=== PATIENT | female | born 1995 | race Caucasian/White ===

== ENCOUNTER 2022-06-18 07:40 | Outpatient (CLI) | payer BC, SELFPAY ==
--- NOTE | 2022-06-18 08:15 | CRLHL7_ITS ---
For Patients: As a result of the Cures Act, medical imaging exams and procedure reports are released immediately into your electronic medical record. You may view this report before your referring provider. If you have questions, please contact your health care provider. INDICATION: First trimester scan, establish dates. TECHNIQUE: Real-time ny-scale imaging of the pelvis was performed. FINDINGS: Sonographic imaging demonstrates a single living intrauterine gestation. The embryo demonstrates a regular cardiac rate measuring 174 beats per minute. The embryo`s crown-rump length measurement of 1.8 cm corresponds to a gestational age of 8 weeks 2 days with a sonographic due date of 01/26/2023 . There is a normal-appearing yolk sac. Ovaries appear unremarkable IMPRESSION: Normal first trimester OB ultrasound exam. Gestational age calculated at 8 weeks 2 days with a sonographic due date of 01/26/2023 . Dictated by Erin Lora MD @ 06/18/2022 11:07:17 AM (Electronically Signed)
== END 2022-06-18 07:41 | disposition home or self-care (01) ==
LOC: US 07:41
PROVIDERS: PCP Family Medicine; Visit Provider Registered Nurse
DX: Z34.91 Encounter for supervision of normal pregnancy, unspecified, first trimester (principal); Z3A.08 8 weeks gestation of pregnancy
CPT/HCPCS: 76817

== ENCOUNTER 2022-06-18 08:58 | Outpatient (CLI) | payer BC, SELFPAY ==
[2022-06-18 12:17] LABS: Hepatitis B Surface Antigen* Negative (Negative)
[2022-06-18 12:24] LABS: HIV 1/2/P24 Combo Screen* Negative (Negative)
[2022-06-18 12:34] LABS: Hepatitis C Virus Antibody* Negative (Negative)
[2022-06-18 14:32] LABS: Chlamydia DNA Amplified* NOT DETECTED (No Detected); GC DNA Amplified* NOT DETECTED (No Detected)
[2022-06-19 13:47] LABS: Rubella Antibody IgG 12.8 IU/mL
[2022-06-19 20:38] LABS: Rapid Plasma Reagin (RPR) Non Reactive (Non Reactive)
== END 2022-06-18 08:59 | disposition home or self-care (01) ==
PROVIDERS: PCP Family Medicine; Visit Provider Registered Nurse
DX: Z34.91 Encounter for supervision of normal pregnancy, unspecified, first trimester (principal); Z3A.08 8 weeks gestation of pregnancy
CPT/HCPCS: 86592; 86703; 86762; 86787; 86803; 86850; 86900; 86901; 87086; 87340; 87491; 87591

== ENCOUNTER 2022-07-24 10:10 | Outpatient (CLI) | payer BC, SELFPAY ==
[2022-07-24 15:22] LABS: SARS PCR* Negative SARS-CoV-2 (Negative)
== END 2022-07-24 10:11 | disposition home or self-care (01) ==
LOC: KYNREF 10:10
PROVIDERS: PCP Family Medicine; Visit Provider Nurse Practitioner Family
DX: Z20.822 Contact with and (suspected) exposure to COVID-19 (principal); J06.9 Acute upper respiratory infection, unspecified
CPT/HCPCS: 87635

== ENCOUNTER 2022-09-10 12:22 | Outpatient (CLI) | payer BC, SELFPAY | END 2022-09-10 12:23 | disposition home or self-care (01) | LOC: US 12:22 | PROVIDERS: PCP Family Medicine; Visit Provider Pediatrics Neonatal-Perinatal Medicine | DX: O99.212 Obesity complicating pregnancy, second trimester (principal); Z3A.20 20 weeks gestation of pregnancy | CPT/HCPCS: 76811 ==

== ENCOUNTER 2022-11-10 07:41 | Outpatient (CLI) | payer BC, SELFPAY ==
[2022-11-10 07:59] VITALS: BP 130/67; PULSE 107
[2022-11-10 08:01] VITALS: PULSE 103; O2SAT 99
[2022-11-10 08:09] VITALS: TEMP 37.1
--- NOTE | 2022-11-10 10:55 | PC.OBNST ---
NST Note NST Note Start: 11/10/22 07:47 Freq: ONCE Status: Discharge Protocol: Document 11/10/22 10:53 ABP (Rec: 11/10/22 10:55 ABP [id number]) NST Note 1 Para (# of births) 0 EDC 01/25/23 Gestational Age In Weeks & Days 29 Weeks & 1 Days Patient Presented with Complaint(s) of Observation after an injury If Observation after an injury, describe Fall on the ice at 0615 Other Complaints Okay per both Dr. Neville Hooper and Dr. Calderon to discharge at 4 hours from fall. Reactive Yes Appropriate for Gestational Age Yes RN Robel Hernanedz, KISHORE Date 11/10/22 Reactive Yes Appropriate for Gestational Age Yes KISHORE Murillo RN Date 11/10/22 OB NST charge Yes Complete NST Note via Write Note Yes The provider's electronic signature indicates the NST is reactive/appropriate for gestational age. *Note to provider: If an addendum is required, open the patient's chart and click on the note under the Nurse/Allied Health tab.
== END 2022-11-10 10:30 | disposition home or self-care (01) ==
LOC: OB OUT 07:44 → OB 07:45
PROVIDERS: PCP Family Medicine; Visit Provider Obstetrics & Gynecology
DX: Z34.93 Encounter for supervision of normal pregnancy, unspecified, third trimester (principal); Z3A.29 29 weeks gestation of pregnancy
CPT/HCPCS: 59025; 99213

== ENCOUNTER 2022-11-11 16:49 | Outpatient (CLI) | payer BC, SELFPAY ==
[2022-11-13 23:11] LABS: Rapid Plasma Reagin (RPR) Non Reactive (Non Reactive)
== END 2022-11-11 16:50 | disposition home or self-care (01) ==
LOC: NFLDREF 16:50
PROVIDERS: PCP Family Medicine; Visit Provider Obstetrics & Gynecology
DX: Z34.90 Encounter for supervision of normal pregnancy, unspecified, unspecified trimester (principal)
CPT/HCPCS: 86592

== ENCOUNTER 2022-12-02 13:38 | Outpatient (CLI) | payer BC, SELFPAY ==
--- NOTE | 2022-12-02 14:00 | CRLHL7_ITS ---
For Patients: As a result of the Century Cures Act, medical imaging exams and procedure reports are released immediately into your electronic medical record. You may view this report before your referring provider. If you have questions, please contact your health care provider. INDICATION: 32 weeks BPP and growth TECHNIQUE: Real time ny scale imaging of the fetus was performed. COMPARISON: 09/10/2022 FINDINGS: Sonographic imaging demonstrates a single living intrauterine gestation. Fetus demonstrates a regular cardiac rate of 138 beats per minute. Fetus has a vertex position. The placenta lies anteriorly. Amniotic fluid volume appears normal and there is a single deepest pocket of 6.5 cm. DEMI 18.3 cm. The estimated weight is 2309gm which lies at the 88th %. On the prior OB ultrasound dated 09/10/2022 the estimated weight was at the 53rd percentile. BPD 92nd percentile. HC 90th percentile. AC greater than 97th percentile. FL 12th percentile. The fetus was active and demonstrated normal breathing movements. There was normal flexion and extension of the trunk and extremities. IMPRESSION: Normal biophysical profile score 8/8. Sonographic gestational age 34 weeks 0 days and sonographic due date 01/13/2023. Sonographic age is 12 days ahead of the clinical age. Estimated weight 88th percentile. AC greater than 97th percentile. Dictated by Ricky Mercer MD @ 12/02/2022 3:08:18 PM (Electronically Signed)
== END 2022-12-02 13:39 | disposition home or self-care (01) ==
LOC: US 13:39
PROVIDERS: PCP Family Medicine; Visit Provider Registered Nurse
DX: Z34.93 Encounter for supervision of normal pregnancy, unspecified, third trimester (principal); Z3A.32 32 weeks gestation of pregnancy
CPT/HCPCS: 76816; 76819

== ENCOUNTER 2022-12-08 07:05 | Outpatient (CLI) | payer BC, SELFPAY ==
--- NOTE | 2022-12-08 07:15 | CRLHL7_ITS ---
For Patients: As a result of the Cures Act, medical imaging exams and procedure reports are released immediately into your electronic medical record. You may view this report before your referring provider. If you have questions, please contact your health care provider. BIOPHYSIAL PROFILE 12/08/2022 CLINICAL HISTORY: Elevated BMI. JENIFER by LMP: 01/25/2023. GA: 33 weeks 1 day. FINDINGS: CERVIX: Not visualized. POSITIONING: Vertex. AMNIOTIC FLUID: 22.8 cm. 8.0 cm SDP. BIOPHYSICAL PROFILE 8 Total Score 2 Gross Body Movements 2 Tone 2 Respiratory Activity 2 Amniotic Fluid PLACENTA: TA, Anterior IMPRESSION: 1. Biophysical profile score 8/8. 2. Polyhydramnios. Single deepest pocket measures 8 cm. Erin Lora M.D. Diagnostic/Breast Radiologist [email or web address] Transcribed: 10:05 a.m. DW/Dictated by: Erin Lora MD @ 12/08/2022 8:34:00 AM (Electronically Signed)
== END 2022-12-08 07:06 | disposition home or self-care (01) ==
LOC: US 07:06
PROVIDERS: PCP Family Medicine; Visit Provider Obstetrics & Gynecology
DX: Z68.38 Body mass index [BMI] 38.0-38.9, adult (principal); O40.3XX0 Polyhydramnios, third trimester, not applicable or unspecified; Z3A.33 33 weeks gestation of pregnancy
CPT/HCPCS: 76819; 82565; 82570; 84156; 84450; 84460; 84520

== ENCOUNTER 2022-12-10 15:12 | Outpatient (CLI) | payer BC, SELFPAY ==
[2022-12-10] VITALS (7 sets, daily range): BP systolic 125–137; BP diastolic 79–86; PULSE 93–105; RESP 16; TEMP 37; O2SAT 98
[2022-12-10 15:52] LABS: Hematocrit 35.8 % (33.0-51.0); Hemoglobin* 12.2 gm/dL (12.0-16.0); Mean Corpuscular HGB Conc 34 gm/dL (32-36); Mean Corpuscular Hemoglobin 30 pg (26-34); Mean Corpuscular Volume 88 fL (80-100); Platelet Count* 207 K/uL (140-440); Red Blood Count 4.07 m/uL (4.00-5.20); White Blood Count* 11.57 K/uL (4.50-11.00)
[2022-12-10 15:56] LABS: Slide Review Reflex No
[2022-12-10 16:08] LABS: Alanine Aminotransferase* 28 U/L (4-35); Aspartate Amino Transferase* 32 U/L (12-35); Blood Urea Nitrogen* 7 mg/dL (5-24); Creatinine* 0.5 mg/dL (0.5-1.5); Estimated Glomerular Filt Rate 132 ml/min
[2022-12-10 16:09] LABS: Creatinine Urine 154.2 mg/dL; Total Protein Urine 12 mg/dL
--- NOTE | 2022-12-10 16:55 | PC.OBNST ---
NST Note NST Note Start: 12/10/22 15:18 Freq: ONCE Status: Active Protocol: Document 12/10/22 16:54 SAM (Rec: 12/10/22 16:55 SAM [id number]) NST Note 1 Para (# of births) 0 EDC 01/25/23 Gestational Age In Weeks & Days 33 Weeks & 3 Days High Risk Factors High Blood Pressure - Gestational Patient Presented with Complaint(s) of Other Other Complaints R/O severe pre-e Reactive Yes Appropriate for Gestational Age Yes RN Muna Goncalves RN Date 12/10/22 Reactive Yes Appropriate for Gestational Age Yes KISHORE Austin RNC Date 12/10/22 OB NST charge Yes Complete NST Note via Write Note Yes The provider's electronic signature indicates the NST is reactive/appropriate for gestational age. *Note to provider: If an addendum is required, open the patient's chart and click on the note under the Nurse/Allied Health tab.
== END 2022-12-10 16:52 | disposition home or self-care (01) ==
LOC: OB OUT 15:12 → OB 15:14
PROVIDERS: PCP Family Medicine; Visit Provider Obstetrics & Gynecology
DX: O13.3 Gestational [pregnancy-induced] hypertension without significant proteinuria, third trimester (principal); Z3A.33 33 weeks gestation of pregnancy
CPT/HCPCS: 36415; 59025; 82565; 82570; 84156; 84450; 84460; 84520; 85027; 99213

== ENCOUNTER 2022-12-15 09:04 | Outpatient (CLI) | payer BC, SELFPAY ==
--- NOTE | 2022-12-15 09:45 | CRLHL7_ITS ---
For Patients: As a result of the Century Cures Act, medical imaging exams and procedure reports are released immediately into your electronic medical record. You may view this report before your referring provider. If you have questions, please contact your health care provider. INDICATION: HIGH BMI COMPARISON: 12/08/2022 TECHNIQUE: Real time ny scale imaging of the fetus was performed. Without non-stress testing. FINDINGS: Sonographic imaging demonstrates a single living intrauterine gestation. Fetus demonstrates a regular cardiac rate of 144 beats per minute. Fetus has a vertex position. The amniotic fluid volume appears normal and there is a single deepest pocket measurement of 3.0 cm. The fetus was active and demonstrated normal breathing movements. There was normal flexion and extension of the trunk and extremities. IMPRESSION: Normal biophysical profile score of 8 out of 8. Dictated by Ricky Mercer MD @ 12/15/2022 11:05:49 AM (Electronically Signed)
== END 2022-12-15 09:05 | disposition home or self-care (01) ==
LOC: US 09:05
PROVIDERS: PCP Family Medicine; Visit Provider Obstetrics & Gynecology
DX: O99.210 Obesity complicating pregnancy, unspecified trimester (principal); Z68.38 Body mass index [BMI] 38.0-38.9, adult
CPT/HCPCS: 76819; 82565; 82570; 84156; 84450; 84460; 84520; 84550

== ENCOUNTER 2022-12-18 10:17 | Outpatient (CLI) | payer BC, SELFPAY ==
--- NOTE | 2022-12-18 10:15 | CRLHL7_ITS ---
For Patients: As a result of the Century Cures Act, medical imaging exams and procedure reports are released immediately into your electronic medical record. You may view this report before your referring provider. If you have questions, please contact your health care provider. INDICATION: gestational hypertension COMPARISON: 01/11/2023 TECHNIQUE: Real time ny scale imaging of the fetus was performed. Without non-stress testing. FINDINGS: Sonographic imaging demonstrates a single living intrauterine gestation. Fetus demonstrates a regular cardiac rate of 170 beats per minute. Fetus has a vertex position. The amniotic fluid volume appears normal and there is a single deepest pocket measurement of 8.6 cm. The fetus was active and demonstrated normal breathing movements. There was normal flexion and extension of the trunk and extremities. IMPRESSION: Normal biophysical profile score of 8 out of 8. Dictated by Ricky Mercer MD @ 12/18/2022 12:19:21 PM (Electronically Signed)
== END 2022-12-18 10:18 | disposition home or self-care (01) ==
LOC: US 10:18
PROVIDERS: PCP Family Medicine; Visit Provider Obstetrics & Gynecology
DX: O13.9 Gestational [pregnancy-induced] hypertension without significant proteinuria, unspecified trimester (principal)
CPT/HCPCS: 76819

== ENCOUNTER 2022-12-22 09:08 | Outpatient (CLI) | payer BC, SELFPAY ==
--- NOTE | 2022-12-22 09:45 | CRLHL7_ITS ---
For Patients: As a result of the Century Cures Act, medical imaging exams and procedure reports are released immediately into your electronic medical record. You may view this report before your referring provider. If you have questions, please contact your health care provider. INDICATION: Elevated BMI COMPARISON: 12/18/2022 TECHNIQUE: Real time ny scale imaging of the fetus was performed. Without non-stress testing. FINDINGS: Sonographic imaging demonstrates a single living intrauterine gestation. Fetus demonstrates a regular cardiac rate of 152 beats per minute. Fetus has a vertex position. The amniotic fluid volume appears normal and there is a single deepest pocket measurement of 5.1 cm. The fetus was active and demonstrated normal breathing movements. There was normal flexion and extension of the trunk and extremities. IMPRESSION: Normal biophysical profile score of 8 out of 8. Dictated by Ricky Mercer MD @ 12/22/2022 10:22:42 AM (Electronically Signed)
== END 2022-12-22 09:09 | disposition home or self-care (01) ==
LOC: US 09:09
PROVIDERS: PCP Family Medicine; Visit Provider Obstetrics & Gynecology
DX: O99.213 Obesity complicating pregnancy, third trimester (principal); Z68.38 Body mass index [BMI] 38.0-38.9, adult; Z3A.35 35 weeks gestation of pregnancy
CPT/HCPCS: 76819

== ENCOUNTER 2022-12-25 10:07 | Outpatient (CLI) | payer BC, SELFPAY | END 2022-12-25 10:08 | disposition home or self-care (01) | LOC: NFLDREF 12-26 00:23 | PROVIDERS: PCP Family Medicine; Referring Provider Family Medicine; Visit Provider Obstetrics & Gynecology | DX: O13.3 Gestational [pregnancy-induced] hypertension without significant proteinuria, third trimester (principal); Z3A.35 35 weeks gestation of pregnancy | CPT/HCPCS: 82565; 82570; 84156; 84450; 84460; 84520 ==

== ENCOUNTER 2022-12-29 08:10 | Outpatient (CLI) | payer BC, SELFPAY ==
--- NOTE | 2022-12-29 08:15 | CRLHL7_ITS ---
For Patients: As a result of the Century Cures Act, medical imaging exams and procedure reports are released immediately into your electronic medical record. You may view this report before your referring provider. If you have questions, please contact your health care provider. INDICATION: BPP/Growth TECHNIQUE: Real time ny scale imaging of the fetus was performed. COMPARISON: 12/22/2022 FINDINGS: Sonographic imaging demonstrates a single living intrauterine gestation. Fetus demonstrates a regular cardiac rate of 149 beats per minute. Fetus has a vertex position. The placenta lies anteriorly. Amniotic fluid volume appears normal and there is a single deepest pocket of 6.6 cm. The estimated weight is 3108gm which lies at the 77th %. On the prior OB ultrasound dated 12/02/2022 the estimated weight was at the 88th percentile. BPD 89th percentile. HC 93rd percentile. AC 93rd percentile. FL 7th percentile. The fetus was active and demonstrated normal breathing movements. There was normal flexion and extension of the trunk and extremities. IMPRESSION: Normal biophysical profile score 8/8. Sonographic gestational age 37 weeks 2 days and sonographic due date 01/27/2023. Sonographic age 8 days ahead of the clinical age. Estimated weight 77th percentile. Abdominal circumference 93rd percentile. Dictated by Ricky Mercer MD @ 12/29/2022 10:05:52 AM (Electronically Signed)
== END 2022-12-29 08:11 | disposition home or self-care (01) ==
LOC: US 08:11
PROVIDERS: PCP Family Medicine; Visit Provider Obstetrics & Gynecology
DX: Z34.93 Encounter for supervision of normal pregnancy, unspecified, third trimester (principal); Z3A.37 37 weeks gestation of pregnancy
CPT/HCPCS: 76816; 76819; 82570; 84156; 87081; 87653

== ENCOUNTER 2023-01-02 11:01 | Inpatient (IN) | payer BC, SELFPAY ==
[2023-01-02] VITALS (37 sets, daily range): BP systolic 135–172; BP diastolic 80–100; PULSE 82–107; RESP 16; TEMP 36.8–36.9; O2SAT 97–100; BMI 45.7
[2023-01-02 12:00] LABS: Total Protein Urine 85 mg/dL
[2023-01-02 12:02] LABS: Creatinine Urine 58.7 mg/dL
[2023-01-02 12:12] LABS: Hematocrit 39.5 % (33.0-51.0); Hemoglobin* 13.3 gm/dL (12.0-16.0); Mean Corpuscular HGB Conc 34 gm/dL (32-36); Mean Corpuscular Hemoglobin 30 pg (26-34); Mean Corpuscular Volume 88 fL (80-100); Platelet Count* 212 K/uL (140-440); Red Blood Count 4.49 m/uL (4.00-5.20); White Blood Count* 15.52 K/uL (4.50-11.00)
[2023-01-02 12:17] LABS: Slide Review Reflex No
[2023-01-02 12:36] LABS: Fibrinogen* 452 mg/dL (200-450); INR 0.95 (0.91-1.10); Prothrombin Time 13.2 Seconds
[2023-01-02 12:37] LABS: Partial Thromboplastin Time* 27 Seconds (23-33)
[2023-01-02] MEDS: miSOPROStoL 25 MCG/0.25 TABLET VAGINAL ×2 (12:45→16:01)
[2023-01-02 12:47] LABS: Alanine Aminotransferase* 23 U/L (4-35); Aspartate Amino Transferase* 28 U/L (12-35); Blood Urea Nitrogen* 8 mg/dL (5-24); Creatinine* 0.5 mg/dL (0.5-1.5); Est. Creatinine Clearance* 138.57; Estimated Glomerular Filt Rate 131 ml/min
[2023-01-02 12:48] LABS: Uric Acid* 6.9 mg/dL (2.2-8.4)
[2023-01-02 12:53] LABS: SARS PCR* Negative SARS-CoV-2 (Negative)
--- NOTE | 2023-01-02 13:10 | P.LDBA_ITS ---
Subjective History of Present Illness Time Seen by Provider: 11:45 Date Seen: 01/02/23 Narrative: Yesi is being admitted to Labor and Delivery for cervical ripening for gestational htn. She is a 27 year old at 36w5d gestation. She was seen in the office this morning for her 2nd betamethasone shot and her blood pressure was 160/108 then on recheck 162/104. She denies headache, visual disturbance, mid epigastric/right upper quadrant pain and nausea/vomiting. She was planned to be admitted to the hospital tomorrow for cervical ripening followed by induction of labor. However, because of the severe-range blood pressures in the office this morning it was recommended that we move her induction up to today. She is extremely edematous throughout her body which is unchanged for several weeks. She was diagnosed with preeclampsia without severe features after admission due to urine protein/creatinine ratio = 1.40. Her full history and physical was dictated by Dr. Schreiber on 01/01/2023. Please see this for details. OB PROBLEM LIST G1, P0 Srini: Keith 1. BMI: 40.6 Hemoglobin A1c: 5.2 Nutrition referral placed. Anesthesia consult. Level 2 ultrasound at 20 week (referral to Dr. Perales is placed) Early GDM screening at 16-20 weeks: 113. Growth ultrasound to be performed between 32 and 36 weeks. Recommended daily baby aspirin starting at 12 weeks. 2. H/o depression. PHQ 0, JULI 0 at first [facility]. Took zoloft in past. D/Cd 1+ year ago. Doing well w/o medication or therapy at [facility]. 3. Genetic screening: Declined 4. H/o migraine w/ aura 5. Gestational HTN on 12/08/22 * labs 12/08/22: P/C 0.30, platelets 214, Cr 0.5, AST 23, ALT 23 * Seen in triage on 12/10 b/c she called w/ DBP's in the 100's at home: Labs normal with urine P/C = 0.00 * 24 hour urine protein (patient did not complete): [] * begin twice weekly antepartum testing (BPP alternating w/ NST) * weekly labs * 12/15/22 labs: Hgb 13.0, plts 220, AST 27, ALT 25, Creat 0.5, BUN 6. Urine P/C 0.20 * 12/18/22: BPP done b/c FHR would not stay on the NST monitor: Vtx, BPP 8/8. SDP 8.6. NO DEMI done. * growth US @ 36 weeks: 77%tile * IOL @ 37 weeks, sooner if severe, betamethasone @ 36 weeks if IOL @ 37 weeks Flu: Recommended and declined at 1st OB COVID: unvaccinated TDAP: 11/11/22 OB - Problem Based A/P Additional Plan (1) Mild preeclampsia: Status: Acute Plan 1. 27-year-old 1 para 0 at 36 weeks 5 days gestation diagnosed with mild preeclampsia today. Previously had gestational hypertension. * Admitted for cervical ripening after severe-range blood pressures were noted in the clinic this morning. * Since admission blood pressures have not been in the severe-range: 135-143/88-92. 2. Start cervical ripening with vaginal Cytotec will reassess cervical exam after her 2nd Cytotec dose and place a Cook catheter if able. 3. Plan to start Pitocin per induction protocol tomorrow. 4. Status post betamethasone #2 at 9:00 a.m. on 01/02/2023. 5. GBS negative 6. Blood type O positive 7. Recheck preeclampsia labs in the morning or if she develops severe-range blood pressures before then. OB Result Labs Labs: Labs on 01/02/2023 at 11:30 a.m. Urine protein/creatinine ratio: 1.40 Hemoglobin 13.3 Platelets 212 INR 0.95 APTT: 27 Fibrinogen 452 (H) = normal for BUN 8 Creatinine 0.5 AST 28 ALT 23 Labs Blood Type: O (+) positive Rubella: immune RPR/VDLR: nonreactive GBS Status: negative HBsAG: negative OB Exam Physical Exam Vital signs: Temp Pulse Resp BP Pulse Ox 98.5 F 82 16 143/88 H 98 01/02/23 12:49 01/02/23 12:50 01/02/23 12:49 01/02/23 12:50 01/02/23 11:15 Narrative: GENERAL APPEARANCE: Pleasant, , well-groomed woman in no acute distress. VITAL SIGNS: as noted in nursing notes HEAD: Normocephalic, atraumatic. THYROID: no masses, nodularity, tenderness or enlargement. LUNGS: Clear to auscultation bilaterally without wheezes, rales or rhonchi. HEART: Regular rate and rhythm with normal S1 and S2. No gallop, rub or murmur. ABDOMEN: Gravid. Soft, nontender, nondistended, with normal bowels sounds throughout. EFM:130's, moderate variability, (+)accels, (-) decels. Reactive. Category 1. PRESENTATION: Vertex by bedside USN. SVE: 1 cm/ 50%/ -4/medium/mid. Mcdonald score: 4. EXTREMITIES: No cyanosis, clubbing, or varicosities. 3+ BLE edema to the mid- mendieta. NEUROLOGIC: Normal gait and balance. Normal deep tendon reflexes at bilateral patella 2+/2, equal without clonus. PSYCHIATRIC: alert and oriented x3. Normal speech pattern, eye contact and affect. SKIN: Warm, dry, and well perfused. Good turgor. No lesions, nodules or rashes.
[2023-01-02] MEDS: LABETALOL HCL 5 MG/ML inj IVP (17:11)
[2023-01-02] MEDS: LACTATED RINGERS 1000 ML 1,000 ML 75 ML IV (17:21)
[2023-01-02] MEDS: MAGNESIUM IV 4 GM/100 ML PIGGYBACK IVPB (17:21)
[2023-01-02 18:42] LABS: Hematocrit 41.5 % (33.0-51.0); Hemoglobin* 13.9 gm/dL (12.0-16.0); Mean Corpuscular HGB Conc 34 gm/dL (32-36); Mean Corpuscular Hemoglobin 30 pg (26-34); Mean Corpuscular Volume 89 fL (80-100); Platelet Count* 247 K/uL (140-440); Red Blood Count 4.67 m/uL (4.00-5.20)
[2023-01-02 18:47] LABS: Slide Review Reflex No
[2023-01-02 18:58] LABS: Alanine Aminotransferase* 26 U/L (4-35); Aspartate Amino Transferase* 31 U/L (12-35); Blood Urea Nitrogen* 9 mg/dL (5-24); Creatinine* 0.7 mg/dL (0.5-1.5); Est. Creatinine Clearance* 98.98; Estimated Glomerular Filt Rate 121 ml/min
--- NOTE | 2023-01-02 19:15 | P.OBPN_ITS ---
Subjective Time Seen by Provider: 18:25 Date Seen: 01/02/23 Narrative: HPI: Patient has received 2 doses of vaginal Cytotec. I was notified of severe-range blood pressure measurements at 1700. She received 1 dose of labetalol 20 mg IV, was started on magnesium with a 4 g load and 2 grams/hour IV. I ordered nifedipine ER 30 mg p.o. daily start this evening. Changed lab testing to every 6 hours and requested sequential Cook compression devices be placed on her legs will not be very mobile with magnesium on board. I obtained verbal consent to place a Cook catheter if her cervix is dilated enough to place it. The patient denies headache, visual disturbance, nausea/vomiting and right upper quadrant/midepigastric pain. She is very edematous which is unchanged from previous weeks. Objective Exam: General: The patient is comfortable in states she feels no contractions even though they are being monitored on the external monitor. Vital signs: Since magnesium was started blood pressures have been 130' s-140's/80's-90's. Mcmechen: Q 2-5 minutes. EFM: 140s, minimal variability, no decelerations, no accelerations. Category 2. SVE: 0.5/50%/-3/mid/soft. A Cook catheter was placed 60 mL of saline was placed and both balloons. The patient tolerated Cook catheter placement well. Vital Signs: Last Vital Signs Temp 98.5 F 01/02/23 12:49 Pulse 96 01/02/23 19:01 Resp 16 01/02/23 17:58 BP 143/80 H 01/02/23 19:01 Pulse Ox 98 01/02/23 17:50 Contractions Monitor mode: External Contraction pattern: Irregular Contraction intensity: Mild Assessment Assessment: induction ongoing Station: -3 Status: Category ll Burrer Machine Variability: Minimal (3-5) Plan Plan: 1. Preeclampsia labs every 6 hours 2. Continue magnesium 2 g IV every hour until 24 hours . 3. Sequential compression devices: Knee height while the patient is in bed. 4. Start low-dose Pitocin at midnight. 5. Cook catheter placed at 6:35 p.m. and should be removed tomorrow at 6:35 a.m. unless the patient goes into labor and the catheter spontaneously falls out. 6. Dr. Schreiber will assume care in the am.
[2023-01-02] MEDS: NIFEdipine 30 MG TAB.ER.24 PO (20:59)
[2023-01-02] MEDS: hydrOXYzine pamoate 25 MG CAPSULE 100 MG PO (22:52)
[2023-01-02] MEDS: MORPHINE 10 MG/ML inj IM (23:01)
[2023-01-03] VITALS (52 sets, daily range): BP systolic 111–179; BP diastolic 71–106; PULSE 79–111; RESP 16–18; TEMP 36.6–36.9; O2SAT 94–99
[2023-01-03] MEDS: OXYTOCIN 30 unit/500 ML in NS 30 UNIT/500 ML BAG IVPB (00:11)
[2023-01-03 01:22] LABS: Hematocrit 39.1 % (33.0-51.0); Hemoglobin* 13.1 gm/dL (12.0-16.0); Mean Corpuscular HGB Conc 34 gm/dL (32-36); Mean Corpuscular Hemoglobin 30 pg (26-34); Mean Corpuscular Volume 89 fL (80-100); Platelet Count* 240 K/uL (140-440); Red Blood Count 4.42 m/uL (4.00-5.20); White Blood Count* 17.99 K/uL (4.50-11.00)
[2023-01-03 01:36] LABS: Slide Review Reflex No
[2023-01-03 01:56] LABS: Alanine Aminotransferase* 24 U/L (4-35); Aspartate Amino Transferase* 28 U/L (12-35); Blood Urea Nitrogen* 10 mg/dL (5-24); Creatinine* 0.6 mg/dL (0.5-1.5); Est. Creatinine Clearance* 115.47; Estimated Glomerular Filt Rate 125 ml/min
[2023-01-03 02:04] LABS: Magnesium* 4.9 mg/dL (1.5-2.6)
[2023-01-03] MEDS: LABETALOL HCL 5 MG/ML inj IVP (06:03)
[2023-01-03] MEDS: LACTATED RINGERS 1000 ML 1,000 ML 69 ML IV (06:28)
[2023-01-03 06:34] LABS: Hematocrit 40.7 % (33.0-51.0); Hemoglobin* 13.5 gm/dL (12.0-16.0); Mean Corpuscular HGB Conc 33 gm/dL (32-36); Mean Corpuscular Hemoglobin 30 pg (26-34); Mean Corpuscular Volume 89 fL (80-100); Platelet Count* 228 K/uL (140-440); Red Blood Count 4.58 m/uL (4.00-5.20); White Blood Count* 18.16 K/uL (4.50-11.00)
[2023-01-03 06:46] LABS: Slide Review Reflex No
[2023-01-03 06:49] LABS: Alanine Aminotransferase* 26 U/L (4-35); Aspartate Amino Transferase* 33 U/L (12-35); Blood Urea Nitrogen* 10 mg/dL (5-24); Creatinine* 0.7 mg/dL (0.5-1.5); Est. Creatinine Clearance* 98.98; Estimated Glomerular Filt Rate 121 ml/min
[2023-01-03 06:58] LABS: Magnesium* 5.5 mg/dL (1.5-2.6)
--- NOTE | 2023-01-03 11:27 | P.OBPN_ITS ---
Subjective Time Seen by Provider: 09:00 Date Seen: 01/03/23 Narrative: Contacted by RN due to concern of being unable to find patient's cervix on exam. Cook cath was removed at 0600 after 12 hour placement. She's has been on 1-6 u of Pitocin since midnight with minimal contractions. Objective Vital Signs: Last Vital Signs Temp 98.2 F 01/03/23 07:20 Pulse 98 01/03/23 11:01 Resp 16 01/02/23 17:58 BP 129/78 01/03/23 11:01 Pulse Ox 99 01/03/23 09:09 Pelvic Exam Dilation (cm): 1 Effacement (%): 25 Station: bal Contractions Monitor mode: External Contraction pattern: Irregular Contraction intensity: Mild Assessment Station: -4 Status: Category ll Mail Processing Associate Variability: Minimal (3-5) Monitor Accelerations: Absent Monitor Decelerations: None Tracing Comments: - category 2 tracing due to minimal variability indicative of magnesium sulfate exposure Labor Progress: - Poor progress s/p misoprostol 25mcg x 2 and 12 hours of cook catheter Maternal Status: - Patient has preeclampsia with severe features based on severe ranging blood pressures requiring IV antihypertensive medications - Last dose of IV labetalol 20mg at 0600 due to BP of 170s/100s. Her BP has been in 130-140s/80-90s since. Patient denies chest pain, SOB, n/v, headache, RUQ pain, vision changes, dizziness. - On magnesium sulfate for seizure prophylaxis Plan Plan: - Patient had poor result with cervical ripening. Cervix is 1/25% effaced, and I was unable to palpate head in the vaginal vault. - Bedside abdominal ultrasound showed fetus in cephalic position, however, high above the pubic symphysis. - Discussed with patient possible option of continued cervical ripening with a second cook catheter. Patient desired placement of 2nd cook catheter. I would continue Pitocin to help engagement of head. - Cook catheter placed under direct visualization with speculum and ring forceps. Patient tolerated the procedure well.
--- NOTE | 2023-01-03 12:00 | PM.OBPNL ---
Subjective Time Seen by Provider: 12:00 Date Seen: 01/03/23 Objective Vital Signs: Last Vital Signs Temp 98.2 F 01/03/23 07:20 Pulse 98 01/03/23 11:01 Resp 16 01/02/23 17:58 BP 129/78 01/03/23 11:01 Pulse Ox 99 01/03/23 09:09 Pelvic Exam Dilation (cm): 1 Effacement (%): 25 Station: bal Contractions Monitor mode: External Contraction pattern: Irregular Contraction intensity: Mild Assessment Station: -4 Status: Category ll Shelter Variability: Minimal (3-5) Monitor Accelerations: Absent Monitor Decelerations: Variable Tracing Comments: - Cat II tracing due to minimal variability with variable decel. Pitocin off halved to 3u. Labor Progress: - Poor progress. On Cook cath#2 Maternal Status: - PreEwSF. Stable mild ranging BP - On mag sulfate for seizure ppx - Currently asymptomatic Plan Plan: - Discussed with patient's worsening tracing. Still minimal variability (likely due to mag sulfate). However, recently variable decels have been occurring with every contraction and pitocin needed to be decreased. She also had a prolonged decel down to the 50s for 2 minutes that resolved spontaneously @0908. - My concern is that she is >24 hours in her induction process with essentially no progress and fetus is already showing signs of distress. Additionally, after decreasing Pitocin, her uterine contractions has significantly decreased. - We discussed option of continuing induction of labor versus proceeding with a delivery. Yesi and I have already had multiple conversations highlighting how difficult induction of labor would be given her gestational age, preeclampsia with severe features, BMI, and this being her 1st baby. For someone with preeclampsia with severe features, ideally, I would want them to be in or close to active labor by 24 hours after induction given that I anticipate her blood pressures getting worse. Treatment is delivery of baby. Now there is new concerns for intolerance to labor at a very early stage in her labor induction. - Yesi and her spouse inquired about risk/benefits of delivery. She understands that the three main categories of risk include bleeding, infection, and damage to surrounding structures. Regarding infection, she understands that we will be delivering appropriate antibiotics, however that the risk of infection following section still is approximately 5%. We will also use a silver impregnated dressing her incision to decrease risk of cellulitis/surgical site infection. She understands that though the risk is very low that there is always a risk of damage to the bladder, uterus, ovaries, fallopian tubes, bowels, ureters, or even the fetus. She understands that most injuries can be addressed at the time of surgery, however, such an injury may require additional surgeries to fix. She has not had any intraabdominal surgeries. Lastly, she understands that a section carries a risk of bleeding, and that while this bleeding can be addressed with multiple medical and surgical modalities, that there is the possibility of needing a blood transfusion. She reports she would accept a blood transfusion understanding the risks of a 1/200,000 risk of Hepatitis and 1/2,000,000 risk of HIV as well as the risk of having an allergic reaction to the blood products. She further understands that this reaction is typically mild, however can be severe including respiratory distress and necessitating ICU-level care. Lastly, she understands that a section does increase risks for future pregnancies and deliveries including, but not limited to, the risk of uterine rupture or placenta accreta. We also briefly discussed that TOLAC is possible for her next as I intend on doing a low transverse CD. - Given everything we discussed, Yesi desires primary delivery. - Consent signed and OR team notified. - Pitocin stopped and Cook cath removed.
[2023-01-03 12:04] LABS: Hematocrit 37.4 % (33.0-51.0); Hemoglobin* 12.5 gm/dL (12.0-16.0); Mean Corpuscular HGB Conc 33 gm/dL (32-36); Mean Corpuscular Hemoglobin 30 pg (26-34); Mean Corpuscular Volume 89 fL (80-100); Platelet Count* 202 K/uL (140-440); Red Blood Count 4.21 m/uL (4.00-5.20); White Blood Count* 15.74 K/uL (4.50-11.00)
[2023-01-03 12:06] LABS: Slide Review Reflex No
[2023-01-03] MEDS: LACTATED RINGERS 1000 ML 1,000 ML 100 ML IV ×2 (12:17→13:30)
[2023-01-03 12:18] LABS: Alanine Aminotransferase* 24 U/L (4-35); Aspartate Amino Transferase* 32 U/L (12-35); Blood Urea Nitrogen* 11 mg/dL (5-24); Creatinine* 0.6 mg/dL (0.5-1.5); Est. Creatinine Clearance* 115.47; Estimated Glomerular Filt Rate 125 ml/min
[2023-01-03 12:25] LABS: Magnesium* 5.4 mg/dL (1.5-2.6)
[2023-01-03] MEDS: CEFAZOLIN 1 GM inj 3 GM IVP (12:27)
--- NOTE | 2023-01-03 13:33 | P.OBPRC_ITS ---
Procedure Pre-op/Post-op diagnoses: Pre-Op/Post-Op Diagnoses Operation Date: 01/03/23 12:15 <No data on this case meets the specified criteria> Procedure Done: Global Procedure Details: Procedures Operation Date: 01/03/23 12:15 Actual Procedure Side Surgeon p Section Not Applicable Lizzette Schreiber MD Disposition: floor Anesthesia type: Spinal Narrative: DELIVERY BY SECTION Date of Service: 01/03/2023 Delivery time: 1254 Summary: Admitted for induction of labor due to preeclampsia with severe features at 36w5d, Primary Lower uterine transverse section - Laufe forceps assisted, Pfannenstiel, Closed with sutures, QBL 1,115 cc Findings: Nuchal cord x 3, true knot x1, suspected polyhydramnios, moderate meconium stained fluid. Normal uterus, bilateral ovaries and tubes 6/8 Weight 6lb 14oz Primary Indication: Nonreassuring heart tracing remote from delivery Poor success with cervical ripening after >24hr Procedures: Laufe forceps assisted primary lower uterine transverse section Specimens Removed: Placenta Surgeon: Lizzette Schreiber MD [employer] Molding Supervisor Surgeon: None Anesthesia: Spinal and tap block Report: Prophylactic antibiotic, 3 g of Ancef] was given before patient was taken to OR. After arrival to the operating room patient was placed in the supine position with left lateral tilt after administration of spinal anesthesia. Laparotomy A pfannenstiel incision was made through the anterior abdominal wall with #10 scalpel approximately 2 cm above the pubic symphysis. The incision was extended sharply with the #10 scalpel through the subcutaneous tissue to the level of fascia. The fascia was entered sharply with a #10 scalpel (Pfannenstiel) in the midline and extended in semi-elliptical fashion bluntly with digits. The rectus muscles were in the midline bluntly with digits. The peritoneum was then entered bluntly. The peritoneal incision was then extended superiorly and inferiorly under direct visualization with care being taken to avoid bladder and bowel. No adhesions were noted. Bladder low off the lower uterine segment. The peritoneal incision was enlarged bluntly by lateral traction from the surgeon's and assistant produce manager's hand. Jcarlos retractor was inserted into the abdomen. head was high and not engaged in the lower uterine segment. Delivery Bladder flap was not needed as bladder is low off the lower uterine segment. A low transverse hysterotomy was made then with #10 scalpel and extended laterally and cephalad with fingers in a low transverse fashion with Manu Butt technique with care being taken to avoid injury to the fetus. The amniotic cavity ( membrane) was then entered with spontaneous rupture of membrane, and the amniotic fluid was noted to be moderate meconium stained. Copious amount of amniotic fluid expressed. Unable to apply adequate fundal pressure for delivery of the fetus out of the hysterotomy due to positioning and maternal habitus. Decision was made to apply Laufe forceps for assisted delivery. Laufe forceps was applied at hysterotomy in an atraumatic manner. With appropriate application, both blades locked easily. Gentle traction applied for delivery of fetus in cephalic position. Nuchal cord x 2 and true knot x 1 noted. With delivery of the baby, no extension was noted. Placenta was delivered spontaneously with steady traction on cord and manual separation of placenta from uterine wall. Closure Uterine cavity was cleaned after placental delivery with lap sponge x 2. The hysterotomy was closed in two layer with stitches using 0 vicryl with continuous locking stitches and 0 monocryl in a continuous non-locking manner due to multiple bleeding sites from hysterotomy after first layer. Excellent hemostasis was achieved after second uterine layer and as needed with electrocautery. The ovaries/tubes/uterine surface were evaluated. They were found to be normal. Fascia was closed with running stitches using 0 vicryl. Hemostasis was checked for and found to be adequate. The subcutaneous layer was closed with running 2-0 plain gut sutures. The skin was closed with 4-0 monocryl subcuticular sutures . The incision was cleaned and covered with a steri strip and silver dressing. Intraoperative Complications: Intraoperative hemorrhage due to bleeding vessels at hysterotomy and uterine atony QBL: 1,115 cc Uterotonics: 40 u of pitocin and 1g TXA Disposition: The patient tolerated the procedure well. She was recovered in Obstetric PACU for close monitoring in stable condition, with a contracted uterus and normal transvaginal bleeding. The infant was sent to mother?s bedside. The placenta and cord segment was sent to pathology.
--- NOTE | 2023-01-03 14:00 | W.PM.NB ---
Nerve Block Nerve Block Time Seen by Provider: 13:45 Date Seen: 01/03/23 Type of block requested by surgeon for post-operative analgesia: TAP Side: bilateral Time out performed: Yes Verification of patient name: Yes Verification of date of : Yes Site marking: not applicable Name of person performing procedure: tesha Continuous monitoring Was continuous monitoring of O2 sat, B/P, monitor and storage bin tender, recorded every 15 minutes?: Yes Procedure Checklist: sterile prep, needles and gloves Ultrasound guided. Images saved: Yes Medications given in 5ml increments after negative aspiration: Marcaine %: 0.25 mL: 30 Needle gauge: 20 and Exparel mL: 10 Patient tolerated procedure well: Yes Block Charges Block Charge (with Pro Fee): TAP Bilateral Use of Ultrasound Machine for Block: Yes- US Guidance/pain block
--- NOTE | 2023-01-03 14:01 | W.ANESCHARGE ---
Anesthesia Charges Start Date/Time Anesthesia Start Date: 01/03/23 Anesthesia Start Time: 12:17 Stop Date/Time Anesthesia Stop Date: 01/03/23 Anesthesia Stop Time: 13:52 Summary Emergency: SLURRY BLENDER
[2023-01-03] MEDS: diphenhydrAMINE 50 MG/ML inj 12.5 MG IVP ×3 (16:02→20:41)
[2023-01-03 17:27] LABS: Basophils Percent Auto 0.2 % (0.0-3.0); Hematocrit 31.4 % (33.0-51.0); Hemoglobin* 10.6 gm/dL (12.0-16.0); Immature Granulocytes Pct Auto 1.6 %; Lymphocytes Percent Auto 6.9 % (20-44); Mean Corpuscular HGB Conc 34 gm/dL (32-36); Mean Corpuscular Hemoglobin 31 pg (26-34); Mean Corpuscular Volume 90 fL (80-100); Monocytes Percent Auto 5.5 % (0.0-11.0); Neutrophils Percent Auto 85.8 % (42.0-72.0); Platelet Count* 206 K/uL (140-440); RDW Coefficient of Variation % 13.4 % (11.5-15.5); Red Blood Count 3.48 m/uL (4.00-5.20); White Blood Count* 19.82 K/uL (4.50-11.00)
[2023-01-03 18:40] LABS: Slide Review Reflex No
[2023-01-03] MEDS: KETOROLAC 30 MG/ML inj IVP (19:31)
[2023-01-04] VITALS (11 sets, daily range): BP systolic 107–133; BP diastolic 72–83; PULSE 82–93; RESP 16–20; TEMP 36.5–37.1; O2SAT 96–99
[2023-01-04] MEDS: diphenhydrAMINE 50 MG/ML inj 12.5 MG IVP (01:33)
[2023-01-04] MEDS: KETOROLAC 30 MG/ML inj IVP ×4 (01:33→19:37)
[2023-01-04] MEDS: ENOXAPARIN 40 MG/0.4 ML INJ SUBCUT ×2 (01:34→13:48)
[2023-01-04] MEDS: LACTATED RINGERS 1000 ML 1,000 ML 75 ML IV (02:09)
[2023-01-04] MEDS: ACETAMINOPHEN 500 MG TABLET 1000 MG PO ×4 (04:43→23:27)
[2023-01-04 06:40] LABS: Hemoglobin* 9.1 gm/dL (12.0-16.0)
[2023-01-04] MEDS: DOCUSATE SODIUM 100 MG CAPSULE PO (07:42)
[2023-01-04] MEDS: FERROUS SULFATE 325 MG TABLET PO (07:42)
--- NOTE | 2023-01-04 07:42 | P.OBPN_ITS ---
OB - PN: A/P Assessment and Plan (1) Severe preeclampsia: Problem details: By BP criteria. Status: Acute (2) BMI greater than 40: Status: Acute (3) Migraine with aura: Status: Acute (4) Asthma: Status: Acute (5) Major depressive disorder, single episode, unspecified: Status: Acute (6) Anxiety disorder, unspecified: Status: Acute (7) S/P section: Status: Acute Plan Postoperative Review: - Admitted for: Induction of labor at 36 weeks 5 days for preeclampsia with severe features - Surgical procedure: Primary delivery - Skin incision: Pfannenstiel - Closure: Sutures PreEwSF - Based on severe range of blood pressures requiring IV antihypertensive - Labs are stable - BP overnight: 110-120s/70-80s - Patient is currently asymptomatic - On magnesium sulfate for seizure prophylaxis. Will keep on until 1pm Acute blood loss anemia - QBL: 1,115 mL - Urine output: 1.93 cc/kg/hr - Preop Hgb: 12.5 - Postop Hgb: 10.6 --> 9.1 --> 9.5 - Normotensive and normal HR - Plan: oral iron Postoperative care: - Diet: Advance as tolerated - Fluid: Encourage oral intake - Activity: Encourage ambulation and incentive spirometry - Pain: Tylenol, Ibuprofen, and oxycodone - DVT prophylaxis: SCDs. Lovenox 40mg BID Discharge Planning - Follow up in 5-7 days for incision check and/or staple removal/ BP check in clinic - Follow Up: follow-up in 3-6 weeks in clinic Baby's Status - Fetus: 6/8, 3120 g, male - Location: Bedside Dispo: Patient is POD#1. Need the following milestones: currently still on magnesium sulfate for seizure ppx. Anticipate discharge POD#2. OB - PN: Subj Subjective Time Seen by Provider: 07:42 Date Seen: 01/04/23 Narrative: Overnight patient had no complaints. Her main sypmtoms currently is fatigue. Her pain is well controlled on oral pain medications - no narcotics. She is tolerating a regular diet. She has passed flatus. She has ambulated once overnight. She endorses soreness with position changes. Lochia is scant. She is urinating without elder. Patient denies chest pain, SOB, n/v, headache, RUQ pain, vision changes, dizziness. OB - PN: Obj Exam Physical Exam: Vital signs: Temp Pulse Resp BP Pulse Ox O2 Del Method 98.7 F 82 16 121/79 96 Room Air 01/04/23 03:30 01/04/23 03:30 01/04/23 06:02 01/04/23 03:30 01/04/23 03:30 01/04/23 03:30 Narrative: Physical exam: General: No acute distress Psych: Alert and oriented x3, full affect HEENT: Normocephalic, atraumatic Heart: Regular rate and rhythm, no murmur rub or gallop Lungs: Clear to auscultation bilaterally Abdomen: Normoactive bowel sounds, soft, appropriately tender at incision site, no rebound, or guarding Incision: Dressing clean, dry and intact Skin: No lesions or rashes Lower extremities: 2+ bilateral lower extremity edema Pelvic exam: Scant lochia Urinary Catheter Management: Urethral: Cath placed during this visit: yes, but has since been removed by the nurse Reason for continuing: decision to DC catheter Removal date: 01/04/23 Removal time: 04:35 OB - PN: Obj Data Labs Labs: Laboratory Results - last 24 hr 01/03/23 01/03/23 01/04/23 11:55 17:23 06:30 WBC 15.74 H 19.82 H RBC 4.21 3.48 L Hgb 12.5 10.6 L 9.1 L Hct 37.4 31.4 L MCV 89 90 MCH 30 31 MCHC 33 34 RDW Coeff of Heber 13.4 Plt Count 202 206 Neut % (Auto) 85.8 H Lymph % (Auto) 6.9 L Campbell % (Auto) 5.5 Eos % (Auto) 0.0 Baso % (Auto) 0.2 Neut # (Auto) 17.00 H Lymph # (Auto) 1.40 Campbell # (Auto) 1.10 H Eos # (Auto) 0.00 Baso # (Auto) 0.00 BUN 11 Creatinine 0.6 Estimated Creat Clear 115.47 Estimated GFR 125 Magnesium 5.4 H* AST 32 ALT 24
[2023-01-04 11:22] LABS: Hematocrit 28.5 % (33.0-51.0); Hemoglobin* 9.5 gm/dL (12.0-16.0); Mean Corpuscular HGB Conc 33 gm/dL (32-36); Mean Corpuscular Hemoglobin 31 pg (26-34); Mean Corpuscular Volume 92 fL (80-100); Platelet Count* 166 K/uL (140-440); Red Blood Count 3.11 m/uL (4.00-5.20); White Blood Count* 12.63 K/uL (4.50-11.00)
[2023-01-04 11:23] LABS: Slide Review Reflex No
[2023-01-04 11:39] LABS: Alanine Aminotransferase* 18 U/L (4-35); Aspartate Amino Transferase* 26 U/L (12-35); Blood Urea Nitrogen* 14 mg/dL (5-24); Creatinine* 0.9 mg/dL (0.5-1.5); Est. Creatinine Clearance* 76.98; Estimated Glomerular Filt Rate 89 ml/min
[2023-01-04] MEDS: SODIUM CHLORIDE 0.9 % (FLUSH) 10 ML SYRINGE IVF (19:37)
[2023-01-04] MEDS: OXYCODONE 5 MG TABLET PO (23:28)
[2023-01-05] MEDS: ENOXAPARIN 40 MG/0.4 ML INJ SUBCUT ×2 (02:44→15:37)
[2023-01-05 02:45] VITALS: BP 141/91; RESP 18
[2023-01-05] MEDS: IBUPROFEN 600 MG TABLET PO ×3 (02:45→18:25)
[2023-01-05] MEDS: OXYCODONE 5 MG TABLET PO ×4 (03:41→20:01)
[2023-01-05 06:15] VITALS: BP 128/76; PULSE 101; RESP 18; TEMP 36.8; O2SAT 97
[2023-01-05] MEDS: ACETAMINOPHEN 500 MG TABLET 1000 MG PO ×2 (06:41→15:37)
--- NOTE | 2023-01-05 07:56 | PM.OBPNCS1 ---
OB - PN: A/P Assessment and Plan (1) Severe preeclampsia: Problem details: By BP criteria. Status: Acute (2) BMI greater than 40: Status: Acute (3) Migraine with aura: Status: Acute (4) Asthma: Status: Acute (5) Major depressive disorder, single episode, unspecified: Status: Acute (6) Anxiety disorder, unspecified: Status: Acute (7) S/P section: Status: Acute Plan day: 2 Plan: routine postop care Comments: Anticipate discharge tomorrow. OB - PN: Subj Subjective Date Seen: 01/05/23 Patient comments: no complaints, pain well controlled, tolerating diet and flatus present infant status: bottle and doing well (improving) [place] feeding status: exclusively bottle feeding (no longer breast feeding) Narrative: Complications:? none. Now off Mag and feeling better. BP WNL.? The patient feels well.? The pain is well controlled with current medications.? She has no new complaints.? Urinary output is adequate and she is voiding without difficulty.? Has a good appetite, is tolerating a general diet, is passing flatus, and has not had a bowel movement.? Has scant amount of rubra lochia.? She is ambulating well.? OB - PN: Obj Exam Physical Exam: Vital signs: Temp Pulse Resp BP Pulse Ox O2 Del Method 98.3 F 101 H 18 128/76 97 Room Air 01/05/23 06:15 01/05/23 06:15 01/05/23 06:15 01/05/23 06:15 01/05/23 06:15 01/05/23 06:15 Narrative: GENERAL APPEARANCE:? normal affect, alert, no distress? MOOD:? appropriate? CHEST:? clear to auscultation and percussion? HEART:? regular rate and rhythm? ABDOMEN:? soft, non-tender the uterine fundus is U/2 and is appropriate for the stage of recovery.?Incision dressed. Dressing clean, dry and intact. EXTREMITIES:? normal and no edema? Urinary Catheter Management: Urethral: Cath placed during this visit: yes, but has since been removed by the nurse Reason for continuing: decision to DC catheter Removal date: 01/04/23 Removal time: 04:35 OB - PN: Obj Data Labs Labs: Laboratory Results - last 24 hr 01/04/23 10:59 WBC 12.63 H RBC 3.11 L Hgb 9.5 L Hct 28.5 L MCV 92 MCH 31 MCHC 33 Plt Count 166 BUN 14 Creatinine 0.9 Estimated Creat Clear 76.98 Estimated GFR 89 AST 26 ALT 18
[2023-01-05 08:15] VITALS: BP 130/81; PULSE 74; RESP 16; TEMP 36.9; O2SAT 98
[2023-01-05] MEDS: DOCUSATE SODIUM 100 MG CAPSULE PO (10:24)
[2023-01-05] MEDS: FERROUS SULFATE 325 MG TABLET PO (10:27)
[2023-01-05 12:00] VITALS: BP 125/83; PULSE 78; RESP 18; TEMP 36.4; O2SAT 98
[2023-01-05 18:34] VITALS: BP 140/81; TEMP 36.7
[2023-01-05 20:27] VITALS: BP 125/79; PULSE 84; RESP 16; TEMP 36.8; O2SAT 96
[2023-01-06 00:31] VITALS: BP 120/77; PULSE 76; RESP 16; TEMP 36.8; O2SAT 96
[2023-01-06] MEDS: IBUPROFEN 600 MG TABLET PO ×2 (00:35→06:28)
[2023-01-06 02:58] VITALS: BP 122/84; PULSE 83; RESP 16; TEMP 36.8; O2SAT 98
[2023-01-06] MEDS: ENOXAPARIN 40 MG/0.4 ML INJ SUBCUT (03:06)
[2023-01-06] MEDS: ACETAMINOPHEN 500 MG TABLET 1000 MG PO ×2 (03:06→09:05)
[2023-01-06] MEDS: OXYCODONE 5 MG TABLET PO ×2 (03:06→09:04)
--- NOTE | 2023-01-06 07:28 | PM.OBDSCS1 ---
DS: Providers Provider Time Seen by Provider: 07:28 Date Seen: 01/06/23 Date of admission: 01/02/23 11:01 Primary care physician: Ricky Castro MD Admitting Clinician: Ioana Barriga MD Consults: 01/05/23 05:14 Consult to Stationary Boiler Fireman [CONS] Routine Comment: Reason for Consult:: Social Service Consult Attending Physician on discharge: Ioana Barriga MD Date of Discharge: 01/06/23 DS: Diagnosis Discharge Diagnosis (1) S/P section: Status: Acute (2) Severe preeclampsia: Status: Acute Problem details: By BP criteria. (3) Major depressive disorder, single episode, unspecified: Status: Acute (4) Anxiety disorder, unspecified: Status: Acute Exam Narrative: Exam Narrative: VSS. ?Afebrile GENERAL APPEARANCE: ?normal affect, alert, no distress MOOD: ?appropriate HEENT: normocephalic, neck supple, full ROM CHEST: ?Symmetrical chest wall movement. ?Normal respiratory effort. ?Clear to auscultation HEART: ?regular rate and rhythm ABDOMEN: ?soft, non-tender. Uterine fundus is firm, at Umbilicus, Midline and is appropriate for the stage of recovery. ?Bowel sounds present. EXTREMITIES: ?normal and +2 edema SKIN: warm, dry. ?Dressing on, dry/intact. Small old shadowing noted on dressing ? ?No signs of infection noted. Const: Vital Signs, click to edit/add: Vital Signs - 24 hr 01/05/23 08:15 01/05/23 12:00 01/05/23 18:34 Temperature 98.4 F 97.6 F 98.0 F Pulse Rate [Left P ulse Oximeter] 74 78 Respiratory Rate 16 18 Blood Pressure [Ri ght Arm] 130/81 125/83 140/81 H Pulse Oximetry 98 98 Oxygen Delivery Me thod Room Air Room Air 01/05/23 20:27 01/06/23 00:31 01/06/23 02:58 Temperature 98.3 F 98.2 F 98.2 F Pulse Rate [Left P ulse Oximeter] 84 76 83 Respiratory Rate 16 16 16 Blood Pressure [Ri ght Arm] 125/79 120/77 122/84 Pulse Oximetry 96 96 98 Oxygen Delivery Me thod Room Air Room Air Room Air OB - DS: Summary Hospital Course Hospital Course: Yesi is a 27 y.o. G 1 P 1 who was admitted to [facility] for preeclampsia, requiring magnesium sulfate. ?She had an uncomplicated . ? The patient feels well. ?The pain is well controlled with current medications. ?She has no new complaints. ?She is bottle feeding and reports things are going well.? the patient has done well.? Vitals have been stable.? BP has mostly been WNL recently. She has remained afebrile.? Has a good appetite, is tolerating a general diet. ?She is voiding without difficulty.? She is passing gas and has not had a bowel movement.? She is ambulating and denies any dizziness.? Has Small amount of rubra lochia. Problems: Preeclampsia requiring magnesium sulfate plan: Discharge home with baby. Follow up in 2 weeks and 6 weeks. Acute anemia, continue iron supplementation for 6 weeks Peripartum Data Procedures: Procedures Operation Date: 01/03/23 12:15 Actual Procedure Side Surgeon p Section Not Applicable Lizzette Evelio Schreiber MD complications: none [place] Infant Gender: Male Discharge Plan: Home Status at Discharge Functional status at discharge: independent ambulation Overall status at discharge: patient is progressing back to baseline Time Spent with Patient Time attestation: Total time spent providing and/or coordinating discharge services: Time spent: Less than 30 minutes Discharge Plan Discharge Disposition: Home, Self-Care Date of Admission: 01/02/23 11:01 Attending Provider on Discharge: Lesa Corbett Primary Care Provider: Ricky Castro Condition: Stable Anticipated Discharge Date/Time: 01/06/23 12:30 Discharge Medications: New docusate sodium 100 mg Capsule 100 mg PO BID PRNQty: 100 0RF Rx Instructions: Take 1 cap 1-2 times a day as needed for constipation ferrous sulfate 325 mg (65 mg iron) Tablet 325 mg PO DAILYWM Qty: 45 0RF ibuprofen 600 mg Tablet 600 mg PO Q6H PRN (Reason: Pain) Qty: 60 0RF oxycodone 5 mg Tablet 5 - 10 mg PO Q4H PRN (Reason: Pain) Qty: 20 0RF Continued prenat.vits,mary,[id number] Tablet 1 tab PO QDAY calcium carbonate 500 mg calcium (1,250 mg) tablet,chewable 1,000 mg PO QDAY PRN cetirizine 5 mg tablet 5 mg PO QDAY PRN omeprazole 10 mg capsule,delayed release(DR/EC) 10 mg PO ONCE Qty: 30 0RF Discontinued aspirin 81 mg tablet,chewable 81 mg PO QDAY Discharge Orders: Discharge Order (Routine); Ordered 01/06/23 Ordered By: Lesa Corbett Patient Education: OB Over the Counter Medication Information, OB /Bottle Feeding Additional Instructions: Continue to monitor blood pressure twice a day. Call if 140/90 or higher. Call if preeclampsia signs occur - headache, vision changes or epigastric pain. Dressing can be removed 7 days post . Call with concerns. Follow up in 3-5 days for nurse visit for blood pressure check. Follow up in 2 weeks and 6 weeks. Activity Level: Activity as Tolerated Follow Up Appointments: Ricky Castro MD [Primary Care Provider] - Forms: [facility] Info Instructions
[2023-01-06 08:50] VITALS: BP 126/84; PULSE 74; RESP 18; TEMP 36.3; O2SAT 97
[2023-01-06] MEDS: FERROUS SULFATE 325 MG TABLET PO (09:05)
[2023-01-06] MEDS: DOCUSATE SODIUM 100 MG CAPSULE PO (09:05)
--- NOTE | 2023-01-06 16:05 | PC.SOCIAL ---
clinical services director consult order put in as error.
== END 2023-01-06 10:51 | disposition home or self-care (01) | DRG 540 ==
PROVIDERS: Obstetrics & Gynecology; Admitting Provider Obstetrics & Gynecology; PCP Family Medicine; Visit Provider Obstetrics & Gynecology
PROC: 10D00Z1 Extraction of Products of Conception, Low, Open Approach (ICD-10-PCS; CPT 59514; principal; 2023-01-03 12:00)
DX: O14.14 Severe pre-eclampsia complicating childbirth (principal); O90.81 Anemia of the puerperium; D62 Acute posthemorrhagic anemia; O76 Abnormality in fetal heart rate and rhythm complicating labor and delivery; O77.0 Labor and delivery complicated by meconium in amniotic fluid; O67.9 Intrapartum hemorrhage, unspecified; O99.344 Other mental disorders complicating childbirth; F32.9 Major depressive disorder, single episode, unspecified; F41.9 Anxiety disorder, unspecified; J45.909 Unspecified asthma, uncomplicated; G43.109 Migraine with aura, not intractable, without status migrainosus; Z3A.36 36 weeks gestation of pregnancy; Z37.0 Single live birth
CPT/HCPCS: 01961; 36415; 59200; 76815; 76942; 82565; 82570; 83735; 84156; 84450; 84460; 84520; 84550; 85018; 85025; 85027; 85384; 85610; 85730; 86850; 86900; 86901; 87635; 88307; 99140; A9270; C1726; C9290; J0690; J1100; J1200; J1650; J1885; J2270; J2274; J2370; J2405; J2590; J3010; J3475; J3490; J7120

== ENCOUNTER 2023-03-09 10:59 | Outpatient (CLI) | payer BC, SELFPAY ==
--- NOTE | 2023-03-09 11:15 | CRLHL7_ITS ---
For Patients: As a result of the Cures Act, medical imaging exams and procedure reports are released immediately into your electronic medical record. You may view this report before your referring provider. If you have questions, please contact your health care provider. RIGHT BREAST ULTRASOUND CLINICAL HISTORY: RIGHT breast lump. COMPARISON: None. TECHNIQUE: Real-time ultrasound imaging of RIGHT breast with imaging documentation. FINDINGS: Targeted sonogram to the area of concern RIGHT breast 5 o`clock 4 cm from the nipple performed. Normal fibroglandular tissue is noted. No fibrocystic change or mass. No abscess. IMPRESSION: Normal targeted RIGHT breast ultrasound 5 o`clock 4 cm from the nipple. RECOMMENDATIONS: Clinical follow-up. Results and recommendations were discussed with the patient at the time of the exam. BI-RADS Category 2: Benign A lay language report of this examination will be provided to the patient. Dictated by Ricky Mercer MD @ 03/09/2023 12:38:07 PM/ty ADRIA/Dictated by: Ricky Mercer MD @ 03/09/2023 12:38:00 PM (Electronically Signed)
== END 2023-03-09 11:00 | disposition home or self-care (01) ==
LOC: US 11:00
PROVIDERS: PCP Family Medicine; Visit Provider Registered Nurse
DX: N63.14 Unspecified lump in the right breast, lower inner quadrant (principal)
CPT/HCPCS: 76642

== ENCOUNTER 2024-05-09 08:01 | Outpatient (CLI) | payer BC, SELFPAY | END 2024-05-09 08:02 | disposition home or self-care (01) | LOC: NFLDREF 05-13 00:19 | PROVIDERS: PCP Family Medicine; Referring Provider Family Medicine; Visit Provider Registered Nurse | DX: Z13.6 Encounter for screening for cardiovascular disorders (principal) | CPT/HCPCS: 80061 ==

== ENCOUNTER 2025-04-04 18:24 | Outpatient (CLI) | payer BC, SELFPAY | END 2025-04-04 18:25 | disposition home or self-care (01) | LOC: NFLDREF 18:25 | PROVIDERS: PCP Family Medicine; Visit Provider Registered Nurse | DX: N92.6 Irregular menstruation, unspecified (principal) | CPT/HCPCS: 84443 ==

== ENCOUNTER 2025-06-23 06:46 | Outpatient (CLI) | payer BC, SELFPAY ==
--- NOTE | 2025-06-23 07:15 | CRLHL7_ITS ---
For Patients: As a result of the Cures Act, medical imaging exams and procedure reports are released immediately into your electronic medical record. You may view this report before your referring provider. If you have questions, please contact your health care provider. OB ULTRASOUND INDICATION: Dating and viability. TECHNIQUE: Real time grayscale imaging of the fetus was performed. Transvaginal. Transvaginal imaging performed to better demonstrate the endometrium and ovaries. LMP: 04/25/2025. JENIFER by LMP: 01/30/2026. GA: 8 w, 3 d. Previous US: No. CRL: 1.7 cm. 8 w 1 d. JENIFER: 02/01/2026. FHR: 186 BPM. Gestational sac: 2.5 cm. Appears within normal limits. Yolk sac: 3.7 mm. Appears within normal limits. Right ovary: N/V. Left ovary: N/V. IMPRESSION: 1. Single living intrauterine measures 8 weeks 1 day with sonographic due date 02/01/2026. 2. Incidental section scar noted. 3. heart rate is 186 beats per minute. Ricky Mercer M.D. Diagnostic Radiologist [email or web address] CORRIE/curtis acevedo/Dictated by: Ricky Mercer MD @ 06/23/2025 10:10:00 AM (Electronically Signed)
== END 2025-06-23 06:47 | disposition home or self-care (01) ==
PROVIDERS: PCP Family Medicine; Visit Provider Registered Nurse
DX: Z34.91 Encounter for supervision of normal pregnancy, unspecified, first trimester (principal); Z3A.08 8 weeks gestation of pregnancy
CPT/HCPCS: 76817; 82565; 82570; 83021; 84156; 84450; 84460; 84520; 86592; 86703; 86704; 86706; 86762; 86787; 86803; 86850; 87086; 87340; 87491; 87591

== ENCOUNTER 2025-07-21 10:47 | Outpatient (CLI) | payer BC, SELFPAY | END 2025-07-21 10:48 | disposition home or self-care (01) | PROVIDERS: PCP Family Medicine; Visit Provider Physician Assistant | DX: R74.01 Elevation of levels of liver transaminase levels (principal) | CPT/HCPCS: 84450; 84460 ==

== ENCOUNTER 2025-08-30 11:58 | Outpatient (CLI) | payer BC, SELFPAY | END 2025-08-30 11:59 | disposition home or self-care (01) | LOC: US 11:58 | PROVIDERS: PCP Family Medicine; Visit Provider Obstetrics & Gynecology | DX: O99.212 Obesity complicating pregnancy, second trimester (principal); E66.813 Obesity, class 3; O26.892 Other specified pregnancy related conditions, second trimester; J45.20 Mild intermittent asthma, uncomplicated; Z3A.18 18 weeks gestation of pregnancy | CPT/HCPCS: 76811 ==